=== PATIENT | female | born 1975 | race Hispanic/Latino ===

== ENCOUNTER 2018-04-09 21:43 | Emergency (ER) | payer BC, SELFPAY | END 2018-04-09 22:24 | disposition home or self-care (01) | LOC: SCSER 21:43 | DX: J06.9 Acute upper respiratory infection, unspecified (principal); Z79.899 Other long term (current) drug therapy | CPT/HCPCS: 99283 ==

== ENCOUNTER 2019-06-04 19:12 | Emergency (ER) | payer BC ==
--- NOTE | 2019-06-04 21:22 | RAD ---
XR Knee Lt 4 View STANDARD: 06/04/2019 9:01 PM CLINICAL INDICATION: Left knee pain after hearing left knee pop COMPARISON: None. FINDINGS: Bones: No acute fracture is demonstrated. Joints: Mild joint capsular distention. Soft Tissue: No acute abnormality.. IMPRESSION: No acute osseous abnormality..
[2019-06-04] MEDS ORDERED: HYDROcodone/Acetaminophen 5/325 mg Tablet ONE (21:31)
== END 2019-06-04 22:04 | disposition home or self-care (01) ==
LOC: ERS 19:12
DX: S83.92XA Sprain of unspecified site of left knee, initial encounter (principal); X50.9XXA Other and unspecified overexertion or strenuous movements or postures, initial encounter